=== PATIENT | male | born 1990 | race African-American/Black ===

== ENCOUNTER 2021-03-01 02:01 | Emergency (ER) | payer SELFPAY ==
[~2021-03-01] VITALS: Ht 185.4 cm; Wt 90.7 kg
[2021-03-01] MEDS ORDERED: PROPOFOL IV EMULSION 10 MG/ML 20 ML VIAL IV ONE (02:30)
[2021-03-01] MEDS ORDERED: KETAMINE HCL INJ 50 MG/ML 10 ML VIAL IV ONE (02:30)
[2021-03-01] MEDS ORDERED: IBUPROFEN 400 MG TAB PO STA (02:48)
[2021-03-01] MEDS ORDERED: IBUPROFEN 400 MG TAB ONE (03:03)
[2021-03-01] MEDS ORDERED: SODIUM CHLORIDE 0.9% 1000ML 1,000 ML ONE (03:59)
[2021-03-01] MEDS ORDERED: ZONEGRAN100 MG PO (04:39)
[2021-03-01] MEDS ORDERED: DEPAKOTE ER500 MG PO (04:39)
[2021-03-01] MEDS ORDERED: IBUPROFEN600 MG PO (04:39)
[2021-03-01 04:43] VITALS: BP 142/92
== END 2021-03-01 05:15 | disposition home or self-care (01) ==
LOC: ER 02:09
DX: S43.004A Unspecified dislocation of right shoulder joint, initial encounter (principal); S42.134A Nondisplaced fracture of coracoid process, right shoulder, initial encounter for closed fracture; W18.39XA Other fall on same level, initial encounter; Y92.008 Other place in unspecified non-institutional (private) residence as the place of occurrence of the external cause; G40.909 Epilepsy, unspecified, not intractable, without status epilepticus
CPT/HCPCS: 23655; 73020; 73030; 99284; J2704; J7030